=== PATIENT | female | born 1960 | race American Indian/Alaskan Native ===

== ENCOUNTER 2018-01-20 07:45 | Outpatient (CLI) | payer OTHER ==
--- NOTE | 2018-01-20 08:45 | XRay Report ---
XRAY RIGHT KNEE 4 THREE VIEWS: 01/20/18 CLINICAL: Right knee pain. FINDINGS: Mild osteopenia. No fracture or dislocation. Joint spaces are normal.No joint effusion.Normal soft tissues. IMPRESSION: Mild osteopenia but otherwise normal.
== END 2018-01-20 07:46 | disposition home or self-care (01) ==
LOC: SPVIMAG 07:45
PROVIDERS: ATTEND Orthopaedic Surgery
DX: M85.861 Other specified disorders of bone density and structure, right lower leg (principal)